=== PATIENT | female | born 1985 | race Caucasian/White ===

== ENCOUNTER 2019-04-26 15:43 | Inpatient (IN) | payer MEDICAID ==
[~2019-04-26] VITALS: Ht 175.3 cm; Wt 50.9 kg
[~2019-04-26 15:43] MED LIST: ALBU6.7H8 PO; CEFD300C37 PO; FAMO20TA7 PO; MAGN400T50 PO; METR500T PO; ONDA4TAB7 PO; SUCR1TAB PO
--- NOTE | 2019-04-26 16:16 | NUR ---
pt to ed c/o flu like sx/nausea/cough/weakness/body aches/fevers/chills x 1 month. intermittent. zpack from urgent care. cough medicine from . pt dry heaving. ST on monitor 100s. pt is being worked up for afib right now. hx bulimia 10 years ago. sts no appetite/not drinking much. vitals as charted. lung sounds coars bilat, clear w/ coughing. sts vomiting x1.5 days. no flu shot. call de leon in reach. awaiting md. as
[2019-04-26] MEDS ORDERED: ONDANSETRON 2MG/ML, 2ML IVPush ONE (16:30)
[2019-04-26] MEDS ORDERED: SODIUM CHLORIDE FLUSH 10ML SYR IVF ONE (16:30)
[2019-04-26] MEDS ORDERED: SODIUM CHLORIDE 0.9% 1,000ML IVBOLUS ONE ×2 (16:30→18:00)
[2019-04-26] MEDS ORDERED: ONDANSETRON 2MG/ML, 2ML ONE (16:35)
[2019-04-26 17:13] LABS: MEAN CORPUSCULAR HEMOGLOBIN 38.4 pg (27.0-34.8); MEAN CORPUSCULAR HGB CONC 32.9 g/dL (32.4-35.8); MEAN CORPUSCULAR VOLUME 116.9 fL (80-100); MEAN PLATELET VOLUME 7.6 fL (7.4-10.4); PLATELET COUNT 197 x10^3/uL (130-400); RED BLOOD COUNT 3.66 x10^6/uL (3.82-5.3); RED CELL DISTRIBUTION WIDTH 19.3 % (9.6-15.2)
[2019-04-26 17:19] LABS: HCG UR SG 1.024 (1.003-1.030); MICROSCOPIC AUTO
[2019-04-26 17:22] LABS: CULTURE INDICATED? NO
--- NOTE | 2019-04-26 17:22 | NUR ---
labs/iv/flu/meds. pt occasionally dry heaves then becomes tachy 120s. ST 100s. call de leon in reach. as
[2019-04-26 17:24] LABS: ALANINE AMINOTRANSFERASE 79 U/L (12-78); ALBUMIN 4.1 g/dL (3.4-5.0); ANION GAP 15 mmol/L (5-15); CALCIUM 8.9 mg/dL (8.5-10.1); CHLORIDE 105 mmol/L (98-107); CREATININE 0.69 mg/dL (0.55-1.02)
[2019-04-26 17:27] LABS: ALKALINE PHOSPHATASE 137 U/L (45-117); BILIRUBIN,TOTAL 1.2 mg/dL (0.2-1.0); TOTAL PROTEIN 7.3 g/dL (6.4-8.2)
[2019-04-26 17:42] LABS: RAPID INFLUENZA A Negative (Negative); RAPID INFLUENZA B Negative (Negative)
[2019-04-26 17:42] LABS: BASOPHILS # (AUTO) 0.02 x10^3/uL (0-0.1); BASOPHILS % (AUTO) 1 % (0-1); EOSINOPHILS # (AUTO) 0.02 x10^3/uL (0-0.4); EOSINOPHILS % (AUTO) 0 % (1-7); LYMPHOCYTES # (AUTO) 0.87 x10^3/uL (1-3.4); LYMPHOCYTES % (AUTO) 19 % (22-44); MD SCAN; MONOCYTES # (AUTO) 0.19 x10^3/uL (0.2-0.8); MONOCYTES % (AUTO) 4 % (2-9); NEUTROPHILS # (AUTO) 3.56 x10^3/uL (1.8-6.8); NEUTROPHILS % (AUTO) 76 % (42-75)
--- NOTE | 2019-04-26 17:52 | NUR ---
LACTIC 6.4. DISCUSSED W/ VAN BIBMERCEDES. 2ND LITER HUNG. PLAN FOR PROBABLY ADMIT/BLOOD CULT/EKG. NAD. NO FURTHER DRY HEAVING.
--- NOTE | 2019-04-26 18:56 | NUR ---
PT TO AND FROM US. RESULTS PENDING. VSS. PT REPORTS FEELING BETTER. BETTER COLOR NOTED.
[2019-04-26 18:58] LABS: AMPHETAMINE SCREEN, URINE Negative (Negative); BARBITURATE SCREEN, URINE Negative (Negative); BENZODIAZEPINE SCREEN, URINE Negative (Negative); CANNABINOID SCREEN, URINE Negative (Negative); COCAINE SCREEN, URINE Negative (Negative); METHADONE SCREEN, URINE Negative (Negative); OPIATE SCREEN, URINE Negative (Negative)
--- NOTE | 2019-04-26 19:10 | NUR ---
PT TO BE ADMITTED.
[2019-04-26] MEDS ORDERED: POLYETHYLENE GLYCOL 17 GM PACKET PO PRN (20:00)
[2019-04-26] MEDS ORDERED: PROMETHAZINE 25 MG/ML, 1ML IM PRN (20:00)
[2019-04-26] MEDS ORDERED: BISACODYL 10 MG SUPP PR PRN (20:00)
[2019-04-26] MEDS ORDERED: hydrALAzine 20 MG/ML, 1ML IVPush PRN (20:00)
[2019-04-26] MEDS ORDERED: OXYcodone IR 5MG TABLET PO PRN (20:00)
[2019-04-26] MEDS ORDERED: DOCUSATE 100 MG CAPSULE PO PRN (20:00)
[2019-04-26] MEDS ORDERED: ONDANSETRON ODT 4 MG PO PRN (20:00)
[2019-04-26 20:08] LABS: FREE T4 (FREE THYROXINE) 0.79 ng/dL (0.76-1.46)
[2019-04-26] MEDS: ONDANSETRON 2MG/ML, 2ML IVPush PRN (21:35)
[2019-04-26] MEDS: D5%-0.9% NACL 1,000 ML IV SCH (21:36)
[2019-04-26 21:43] VITALS: BP 111/74
[2019-04-26] MEDS ORDERED: FLU VACC QS2019-20 36MOS UP/PF 0.5 ML IM-VACC ONE (22:30)
[2019-04-26] MEDS ORDERED: ALBUTEROL SULFATE 2.5 MG/3 ML NPPB PRN (23:00)
[2019-04-26] MEDS: morphine SULFATE 10 MG/ML, 1ML IVPush PRN (23:43)
[2019-04-27 00:38] LABS: CLOSTRIDIUM DIFFICILE ANTIGEN POSITIVE; CLOSTRIDIUM DIFFICILE TOXIN NEGATIVE (Negative)
[2019-04-27 01:20] VITALS: BP 123/84
[2019-04-27] MEDS: morphine SULFATE 10 MG/ML, 1ML IVPush PRN (02:55)
[2019-04-27 05:13] LABS: MEAN CORPUSCULAR HEMOGLOBIN 38.9 pg (27.0-34.8); MEAN CORPUSCULAR HGB CONC 33.3 g/dL (32.4-35.8); MEAN CORPUSCULAR VOLUME 116.8 fL (80-100); MEAN PLATELET VOLUME 7.5 fL (7.4-10.4); PLATELET COUNT 151 x10^3/uL (130-400); RED BLOOD COUNT 2.72 x10^6/uL (3.82-5.3); RED CELL DISTRIBUTION WIDTH 18.7 % (9.6-15.2)
[2019-04-27 05:15] LABS: ANION GAP 5 mmol/L (5-15); CALCIUM 7.3 mg/dL (8.5-10.1); CHLORIDE 110 mmol/L (98-107)
[2019-04-27 05:19] LABS: ALANINE AMINOTRANSFERASE 53 U/L (12-78); ALKALINE PHOSPHATASE 91 U/L (45-117); BILIRUBIN,TOTAL 1.8 mg/dL (0.2-1.0); CHOLESTEROL, TOTAL 119 mg/dL (140-239); CREATININE 0.59 mg/dL (0.55-1.02); HDL CHOL % 50 % (28-40); HDL CHOLESTEROL (DIRECT) 60 mg/dL (40-60); LDL CHOLESTEROL,CALCULATED 37 mg/dL (54-169); LDL/HDL RATIO 0.6 (0.5-3.0); TOTAL PROTEIN 5.2 g/dL (6.4-8.2); TRIGLYCERIDES 109 mg/dL (50-200); VLDL CHOLESTEROL 22 mg/dL (0-25)
[2019-04-27] MEDS: D5%-0.9% NACL 1,000 ML IV SCH (05:34)
[2019-04-27 05:53] LABS: BASOPHILS # (AUTO) 0.02 x10^3/uL (0-0.1); BASOPHILS % (AUTO) 0 % (0-1); EOSINOPHILS # (AUTO) 0.08 x10^3/uL (0-0.4); EOSINOPHILS % (AUTO) 2 % (1-7); LYMPHOCYTES # (AUTO) 1.66 x10^3/uL (1-3.4); LYMPHOCYTES % (AUTO) 30 % (22-44); MD MORPH REVIEW ONLY; MONOCYTES % (AUTO) 5 % (2-9); NEUTROPHILS # (AUTO) 3.45 x10^3/uL (1.8-6.8); NEUTROPHILS % (AUTO) 63 % (42-75)
[2019-04-27 05:54] LABS: ANISOCYTOSIS 1+; STOMATOCYTES 1+
[2019-04-27 05:55] LABS: <PLATELET ESTIMATE> ADEQUATE; <PLT MORPHOLOGY> NORMAL PLT MORPH
[2019-04-27] MEDS ORDERED: BENZ-17 PO (06:45)
[2019-04-27 07:11] VITALS: BP 127/85
[2019-04-27] MEDS ORDERED: MAGNESIUM SULFATE 3 GM in SODIUM CHLORIDE 0.9% 100 ML IV ONE (07:30)
[2019-04-27] MEDS: ONDANSETRON 2MG/ML, 2ML IVPush PRN (08:51)
[2019-04-27 12:55] VITALS: BP 131/93
[2019-04-27 13:06] VITALS: BP 116/77
[2019-04-27] MEDS: LACTATED RINGERS 1,000 ML IV SCH (17:24)
[2019-04-27 19:04] VITALS: BP 123/85
[2019-04-27] MEDS ORDERED: OMNIPAQUE 350 MG/ML, 100ML BOTTLE ONE (19:07)
[2019-04-27] MEDS: VANCOMYCIN 50 MG/ML ORAL SUSP PO SCH (20:45)
[2019-04-28 01:00] VITALS: BP 121/87
[2019-04-28] MEDS: LACTATED RINGERS 1,000 ML IV SCH (03:21)
[2019-04-28] MEDS: VANCOMYCIN 50 MG/ML ORAL SUSP PO SCH ×3 (03:21→16:00)
[2019-04-28 05:44] LABS: INTERNATIONAL NORMALIZED RATIO 1.02 (0.93-1.1); PROTHROMBIN TIME 10.7 Seconds (9.6-11.5)
[2019-04-28 05:47] LABS: MEAN CORPUSCULAR HEMOGLOBIN 38.7 pg (27.0-34.8); MEAN CORPUSCULAR HGB CONC 33.4 g/dL (32.4-35.8); MEAN CORPUSCULAR VOLUME 115.8 fL (80-100); MEAN PLATELET VOLUME 7.9 fL (7.4-10.4); PLATELET COUNT 145 x10^3/uL (130-400); RED BLOOD COUNT 3.03 x10^6/uL (3.82-5.3); RED CELL DISTRIBUTION WIDTH 18.5 % (9.6-15.2)
[2019-04-28 05:48] LABS: ALBUMIN 3.2 g/dL (3.4-5.0); ANION GAP 7 mmol/L (5-15); CALCIUM 8.1 mg/dL (8.5-10.1); CHLORIDE 105 mmol/L (98-107)
[2019-04-28 06:07] LABS: BASOPHILS # (AUTO) 0.02 x10^3/uL (0-0.1); BASOPHILS % (AUTO) 1 % (0-1); EOSINOPHILS # (AUTO) 0.19 x10^3/uL (0-0.4); EOSINOPHILS % (AUTO) 5 % (1-7); LYMPHOCYTES # (AUTO) 1.25 x10^3/uL (1-3.4); LYMPHOCYTES % (AUTO) 30 % (22-44); MD SCAN; MONOCYTES # (AUTO) 0.21 x10^3/uL (0.2-0.8); MONOCYTES % (AUTO) 5 % (2-9); NEUTROPHILS # (AUTO) 2.55 x10^3/uL (1.8-6.8); NEUTROPHILS % (AUTO) 60 % (42-75)
[2019-04-28 06:16] LABS: ALANINE AMINOTRANSFERASE 43 U/L (12-78); ALKALINE PHOSPHATASE 101 U/L (45-117); BILIRUBIN,TOTAL 1.5 mg/dL (0.2-1.0); CREATININE 0.46 mg/dL (0.55-1.02); TOTAL PROTEIN 5.8 g/dL (6.4-8.2)
[2019-04-28] MEDS ORDERED: MAGNESIUM SULFATE PMX 2GM/50ML 50 ML IV ONE (07:30)
[2019-04-28] MEDS ORDERED: POTASSIUM PHOSPHATE 44 MEQ in SODIUM CHLORIDE 0.9% 500 ML IV ONE (07:30)
[2019-04-28 08:14] VITALS: BP 119/79
[2019-04-28 12:45] VITALS: BP 102/71
[2019-04-28] MEDS ORDERED: VANC1VIA3 PO (14:54)
[2019-04-28] MEDS ORDERED: POTASSIUM CHLORIDE 20 MEQ TAB.ER.PRT PO ONE (16:00)
[2019-04-28] MEDS ORDERED: NEUTRA PHOS K 250 MG TABLET PO ONE (16:00)
== END 2019-04-28 18:31 | disposition home or self-care (01) | DRG 372 ==
LOC: ED 17:09 → EDIP 19:04 → 3N 20:10
PROVIDERS: ADMIT Emergency Medicine; ATTEND Emergency Medicine
DX: A04.72 Enterocolitis due to Clostridium difficile, not specified as recurrent (principal); E87.2 Acidosis; D50.9 Iron deficiency anemia, unspecified; E83.42 Hypomagnesemia; E86.0 Dehydration; J45.909 Unspecified asthma, uncomplicated; Z88.8 Allergy status to other drugs, medicaments and biological substances; Z91.018 Allergy to other foods; K76.0 Fatty (change of) liver, not elsewhere classified; Z82.49 Family history of ischemic heart disease and other diseases of the circulatory system; Z83.3 Family history of diabetes mellitus; D53.9 Nutritional anemia, unspecified
CPT/HCPCS: 36415; 84145; 87400; 87806; J3370; J7042; 71045; 74177; 76700; 80053; 80061; 80307; 81001; 81025; 82607; 83036; 83605; 83690; 83735; 84100; 84439; 84443; 85025; 85610; 86704; 86705; 86706; 86708; 86709; 86803; 87040; 87081; 87324; 87340; 87493; 87880; 90686; 93005; G0378; J2405; J2550; J3475; Q9967; G0475; J2270; J7030; J7040; J7120

== ENCOUNTER 2019-05-04 14:37 | Emergency (ER) | payer MEDICAID ==
[~2019-05-04] VITALS: Ht 152.4 cm; Wt 45.9 kg
[~2019-05-04 14:37] MED LIST changes: +BENZ-17 PO; +VANC1VIA3 PO
--- NOTE | 2019-05-04 15:28 | NUR ---
ISO CART PLACED OUTSIDE OF ROOM. PT DRESSED IN GOWN, ATTACHED TO MONITORS. PT WAS DIAGNOSED WITH C-DIFF AND COLITIS RECENTLY. DUE TO INSURANCE AND SOURCE ISSUES, PT STARTED ORAL VANC THIS PAST Saturday05/02/2019. ABLE TO HOLD DOWN SMALL AMOUNTS OF WATER, BUT NOT MUCH ELSE. C/O N/V/D AND ABD PAIN. PROVIDED WITH WARM BLANKETS. DENIES ANY FURTHER NEEDS OR CONCERNS AT THIS TIME. CALL LIGHT IN REACH.
[2019-05-04] MEDS ORDERED: SODIUM CHLORIDE 0.9% 1,000ML IVBOLUS ONE (16:00)
[2019-05-04] MEDS ORDERED: ONDANSETRON 2MG/ML, 2ML IVPush ONE (16:00)
[2019-05-04] MEDS ORDERED: ONDANSETRON 2MG/ML, 2ML ONE (16:00)
[2019-05-04] MEDS ORDERED: SODIUM CHLORIDE FLUSH 10ML SYR IVF ONE (16:00)
[2019-05-04 16:18] LABS: ALANINE AMINOTRANSFERASE 57 U/L (12-78); ANION GAP 7 mmol/L (5-15); CALCIUM 9.4 mg/dL (8.5-10.1); CHLORIDE 104 mmol/L (98-107); CREATININE 0.59 mg/dL (0.55-1.02)
[2019-05-04 16:20] LABS: ALKALINE PHOSPHATASE 123 U/L (45-117); BILIRUBIN,TOTAL 2.4 mg/dL (0.2-1.0); TOTAL PROTEIN 7.2 g/dL (6.4-8.2)
--- NOTE | 2019-05-04 16:51 | NUR ---
TASK RN: PT PROVIDED UA. SENT TO LAB. NADN. BOWER. NO OTHER NEEDS REQUESTED AT THIS TIME. PT STATES "I HAVEN'T HAD DIARRHEA FOR ABOUT 3 HOURS. SINCE BEFORE I GOT HERE."
[2019-05-04 16:53] VITALS: BP 126/84
[2019-05-04 17:03] LABS: MICROSCOPIC AUTO
[2019-05-04 17:06] LABS: BASOPHILS # (AUTO) 0.02 x10^3/uL (0-0.1); BASOPHILS % (AUTO) 1 % (0-1); EOSINOPHILS # (AUTO) 0.07 x10^3/uL (0-0.4); EOSINOPHILS % (AUTO) 2 % (1-7); LYMPHOCYTES # (AUTO) 1.16 x10^3/uL (1-3.4); LYMPHOCYTES % (AUTO) 31 % (22-44); MD SCAN; MEAN CORPUSCULAR HGB CONC 32.4 g/dL (32.4-35.8); MEAN CORPUSCULAR VOLUME 117.5 fL (80-100); MEAN PLATELET VOLUME 8.4 fL (7.4-10.4); MONOCYTES # (AUTO) 0.34 x10^3/uL (0.2-0.8); MONOCYTES % (AUTO) 9 % (2-9); NEUTROPHILS # (AUTO) 2.21 x10^3/uL (1.8-6.8); NEUTROPHILS % (AUTO) 58 % (42-75); PLATELET COUNT 159 x10^3/uL (130-400); RED BLOOD COUNT 3.53 x10^6/uL (3.82-5.3); RED CELL DISTRIBUTION WIDTH 18.2 % (9.6-15.2)
--- NOTE | 2019-05-04 17:40 | NUR ---
PT UPDATED ON PLAN OF CARE. DENIES ANY CURRENT NEEDS OR CONCERNS. CALL LIGHT IN REACH.
[2019-06-10] MEDS ORDERED: VANC1VIA3 PO ×2 (13:57)
[2019-06-10] MEDS ORDERED: PANT40TA5 PO ×2 (13:57)
== END 2019-05-04 19:17 | disposition home or self-care (01) ==
LOC: ED 18:47
DX: R19.7 Diarrhea, unspecified (principal); J45.909 Unspecified asthma, uncomplicated
CPT/HCPCS: 36415; 80053; 81001; 85025; 87086; 96361; 96374; 99283; J2405; J7030

== ENCOUNTER 2019-05-08 15:22 | Emergency (ER) | payer MEDICAID ==
[~2019-05-08] VITALS: Ht 162.6 cm; Wt 46.5 kg
--- NOTE | 2019-05-08 17:14 | NUR ---
Pt to room from lobby.
[2019-05-08 19:23] LABS: ALANINE AMINOTRANSFERASE 47 U/L (12-78); ALBUMIN 4.1 g/dL (3.4-5.0); ANION GAP 9 mmol/L (5-15); CALCIUM 9.2 mg/dL (8.5-10.1); CHLORIDE 102 mmol/L (98-107); CREATININE 0.61 mg/dL (0.55-1.02)
[2019-05-08 19:27] LABS: MEAN CORPUSCULAR HGB CONC 32.8 g/dL (32.4-35.8); MEAN PLATELET VOLUME 7.7 fL (7.4-10.4); PLATELET COUNT 326 x10^3/uL (130-400); RED BLOOD COUNT 3.54 x10^6/uL (3.82-5.3)
[2019-05-08 19:28] LABS: ALKALINE PHOSPHATASE 117 U/L (45-117); BASOPHILS # (AUTO) 0.04 x10^3/uL (0-0.1); BASOPHILS % (AUTO) 1 % (0-1); EOSINOPHILS # (AUTO) 0.03 x10^3/uL (0-0.4); EOSINOPHILS % (AUTO) 0 % (1-7); LYMPHOCYTES # (AUTO) 1.71 x10^3/uL (1-3.4); LYMPHOCYTES % (AUTO) 24 % (22-44); MD MORPH REVIEW ONLY; MONOCYTES # (AUTO) 0.34 x10^3/uL (0.2-0.8); MONOCYTES % (AUTO) 5 % (2-9); NEUTROPHILS # (AUTO) 5.03 x10^3/uL (1.8-6.8); NEUTROPHILS % (AUTO) 70 % (42-75); TOTAL PROTEIN 7.2 g/dL (6.4-8.2)
[2019-05-08 19:29] LABS: <PLATELET ESTIMATE> ADEQUATE; <PLT MORPHOLOGY> NORMAL PLT MORPH; ANISOCYTOSIS 1+; POLYCHROMASIA 1+
[2019-05-08 19:30] LABS: MICROSCOPIC NOT IND
[2019-05-08 19:32] LABS: CULTURE INDICATED? NO
[2019-05-08] MEDS ORDERED: ONDANSETRON ODT 4 MG ONE (19:58)
[2019-05-08] MEDS ORDERED: ONDANSETRON ODT 4 MG PO ONE (20:00)
[2019-05-08 20:28] VITALS: BP 117/78
== END 2019-05-08 20:31 | disposition home or self-care (01) ==
LOC: ED 17:50
DX: R10.12 Left upper quadrant pain (principal); J45.909 Unspecified asthma, uncomplicated; R11.2 Nausea with vomiting, unspecified; R42 Dizziness and giddiness
CPT/HCPCS: 36415; 74021; 80053; 81003; 83690; 84703; 85025; 99284; Q0162

== ENCOUNTER 2019-05-16 12:04 | Emergency (ER) | payer MEDICAID ==
[~2019-05-16] VITALS: Ht 162.6 cm; Wt 44.7 kg
--- NOTE | 2019-05-16 12:55 | NUR ---
PT PRESENTING TO ER FOR LLQ PAIN WITH N/V/D. PT DX WITH CDIFF LAST MONTH, NO LONGER TAKING ABX BUT PAIN STILL PRESENT. DIARREAH X6 AFTER STOPPING ABX. PT PLACED IN ISO. CONNECTED TO MONITORING, VSS. FAMILY AT BEDSIDE. CALL LIGHT WITHIN REACH
[2019-05-16] MEDS ORDERED: MORPHINE SULFATE 4 MG/ML, 1ML ONE (13:29)
[2019-05-16] MEDS ORDERED: ONDANSETRON 2MG/ML, 2ML ONE (13:29)
[2019-05-16 13:30] LABS: MICROSCOPIC INDICATED
[2019-05-16] MEDS ORDERED: ONDANSETRON 2MG/ML, 2ML IVPush ONE (13:30)
[2019-05-16] MEDS ORDERED: MORPHINE SULFATE 4 MG/ML, 1ML IVPush PRN (13:30)
[2019-05-16] MEDS ORDERED: SODIUM CHLORIDE FLUSH 10ML SYR IVF ONE (13:30)
[2019-05-16 13:31] LABS: CULTURE INDICATED? YES
[2019-05-16 13:33] LABS: MEAN CORPUSCULAR HEMOGLOBIN 37.2 pg (27.0-34.8); MEAN CORPUSCULAR HGB CONC 32.6 g/dL (32.4-35.8); MEAN CORPUSCULAR VOLUME 114.1 fL (80-100); MEAN PLATELET VOLUME 7.4 fL (7.4-10.4); PLATELET COUNT 198 x10^3/uL (130-400); RED BLOOD COUNT 3.91 x10^6/uL (3.82-5.3); RED CELL DISTRIBUTION WIDTH 17.3 % (9.6-15.2)
--- NOTE | 2019-05-16 13:34 | NUR ---
PT MEDICATED FOR PAIN PER MAR. LABS COLLECTED. UA COLLECTED AND SENT. CALL LIGHT WITHIN REACH. FAMILY AT BEDSIDE. AWAITING RESULTS AT THIS TIME
[2019-05-16 13:46] LABS: ALBUMIN 4.1 g/dL (3.4-5.0); ANION GAP 12 mmol/L (5-15); CALCIUM 9.2 mg/dL (8.5-10.1); CHLORIDE 101 mmol/L (98-107)
[2019-05-16 13:49] LABS: ALANINE AMINOTRANSFERASE 52 U/L (12-78); ALKALINE PHOSPHATASE 128 U/L (45-117); BILIRUBIN,TOTAL 2.5 mg/dL (0.2-1.0); CREATININE 0.57 mg/dL (0.55-1.02)
[2019-05-16 13:50] LABS: TOTAL PROTEIN 7.4 g/dL (6.4-8.2)
[2019-05-16 13:59] LABS: BASOPHILS # (AUTO) 0.05 x10^3/uL (0-0.1); BASOPHILS % (AUTO) 1 % (0-1); EOSINOPHILS # (AUTO) 0.19 x10^3/uL (0-0.4); EOSINOPHILS % (AUTO) 4 % (1-7); LYMPHOCYTES # (AUTO) 1.55 x10^3/uL (1-3.4); LYMPHOCYTES % (AUTO) 34 % (22-44); MD MORPH REVIEW ONLY; MONOCYTES % (AUTO) 9 % (2-9); NEUTROPHILS # (AUTO) 2.42 x10^3/uL (1.8-6.8); NEUTROPHILS % (AUTO) 53 % (42-75)
[2019-05-16 14:00] LABS: ANISOCYTOSIS 1+
[2019-05-16 14:01] LABS: <PLATELET ESTIMATE> ADEQUATE; <PLT MORPHOLOGY> NORMAL PLT MORPH
--- NOTE | 2019-05-16 14:25 | NUR ---
ALL RESULTS BACK AT THIS TIME, CHART UP FOR RECHECK
--- NOTE | 2019-05-16 15:06 | NUR ---
GI PAGED @[phone]. CALL RETURNED @ [phone]
--- NOTE | 2019-05-16 15:17 | NUR ---
MD TO BEDSIDE FOR RECEHCK.
[2019-05-16 16:06] VITALS: BP 117/70
== END 2019-05-16 16:08 | disposition home or self-care (01) ==
LOC: ED 12:55
DX: A04.72 Enterocolitis due to Clostridium difficile, not specified as recurrent (principal); R10.12 Left upper quadrant pain
CPT/HCPCS: 36415; 80053; 81001; 83690; 84703; 85025; 87086; 96374; 96375; 99283; J2270; J2405; 87147

== ENCOUNTER → 2019-05-25 | Outpatient (CLI) | payer MEDICAID | END | disposition home or self-care (01) | LOC: CFH 15:54 | PROVIDERS: ATTEND Internal Medicine Cardiovascular Disease | DX: R00.2 Palpitations (principal); J45.909 Unspecified asthma, uncomplicated | CPT/HCPCS: 93306 ==

== ENCOUNTER 2019-05-31 18:00 | Emergency (ER) | payer MEDICAID ==
[~2019-05-31] VITALS: Ht 162.6 cm; Wt 47.9 kg
--- NOTE | 2019-05-31 18:34 | NUR ---
THIS IS A 33 YO F W/ C/O BRIGHT RED BLOOD IN STOOL LAST NIGHT AND TODAY. REPORTS DIARRHEA SINCE THE BEGINING OF APRIL. DX WITH CDIFF AND HAS BEEN ON VANCOMYCIN X2 WEEKS. PT REPORTS LAST YEAR SHE WAS DX W/ COLITIS AND WENT SEPTIC. PT REPORTS LEFT UPPR QUADRANT. PT TACHYCARDIC. ALL OTHER VS WDL. PT RESTING ON GURNEY W/ CALL LIGHT IN REACH. AWAITING ED PROVIDER NERY.
--- NOTE | 2019-05-31 19:07 | NUR ---
LAB IN ROOM.
--- NOTE | 2019-05-31 19:13 | NUR ---
PT AMBULATED TO THE COMMODE W/ A STEADY GAIT.
[2019-05-31 19:18] LABS: MEAN CORPUSCULAR HEMOGLOBIN 37.1 pg (27.0-34.8); MEAN CORPUSCULAR HGB CONC 32.8 g/dL (32.4-35.8); MEAN CORPUSCULAR VOLUME 113.2 fL (80-100); MEAN PLATELET VOLUME 7.3 fL (7.4-10.4); PLATELET COUNT 276 x10^3/uL (130-400); RED BLOOD COUNT 3.61 x10^6/uL (3.82-5.3); RED CELL DISTRIBUTION WIDTH 16.2 % (9.6-15.2)
[2019-05-31 19:21] LABS: BASOPHILS # (AUTO) 0.02 x10^3/uL (0-0.1); BASOPHILS % (AUTO) 0 % (0-1); EOSINOPHILS # (AUTO) 0.11 x10^3/uL (0-0.4); EOSINOPHILS % (AUTO) 3 % (1-7); LYMPHOCYTES # (AUTO) 1.35 x10^3/uL (1-3.4); LYMPHOCYTES % (AUTO) 31 % (22-44); MD MORPH REVIEW ONLY; MONOCYTES # (AUTO) 0.39 x10^3/uL (0.2-0.8); MONOCYTES % (AUTO) 9 % (2-9); NEUTROPHILS # (AUTO) 2.43 x10^3/uL (1.8-6.8); NEUTROPHILS % (AUTO) 57 % (42-75)
[2019-05-31 19:23] LABS: INTERNATIONAL NORMALIZED RATIO 1.01 (0.93-1.1); PROTHROMBIN TIME 10.7 Seconds (9.6-11.5)
--- NOTE | 2019-05-31 19:24 | NUR ---
PT UNABLE TO PROVIDE STOOL SAMPLE.
[2019-05-31 19:25] LABS: ALANINE AMINOTRANSFERASE 50 U/L (12-78); ALBUMIN 3.4 g/dL (3.4-5.0); ANION GAP 6 mmol/L (5-15); CALCIUM 8.4 mg/dL (8.5-10.1); CHLORIDE 108 mmol/L (98-107)
[2019-05-31 19:30] LABS: ALKALINE PHOSPHATASE 106 U/L (45-117); BILIRUBIN,TOTAL 0.3 mg/dL (0.2-1.0); TOTAL PROTEIN 6.6 g/dL (6.4-8.2)
[2019-05-31 19:39] LABS: ANISOCYTOSIS 1+
[2019-05-31 19:40] LABS: <PLATELET ESTIMATE> ADEQUATE; <PLT MORPHOLOGY> NORMAL PLT MORPH
--- NOTE | 2019-05-31 20:01 | NUR ---
PT AMBULATED TO THE COMMODE W/ A STEADY GAIT.
--- NOTE | 2019-05-31 20:04 | NUR ---
PT UNABLE TO PROVIDE STOOL SAMPLE.
--- NOTE | 2019-05-31 20:32 | NUR ---
IV PLACED FOR CT. PT REQUESTING PAIN MEDICATION AT THIS TIME, UPDATED. CT CONTACTED THAT PT REDY FOR TESTING.
[2019-05-31] MEDS ORDERED: ONDANSETRON 2MG/ML, 2ML ONE (20:33)
[2019-05-31] MEDS ORDERED: MORPHINE SULFATE 4 MG/ML, 1ML ONE (20:33)
--- NOTE | 2019-05-31 20:37 | NUR ---
PT MEDICATED FOR PAIN PER JUN. TAKEN TO CT
[2019-05-31 20:51] VITALS: BP 124/91
[2019-05-31] MEDS ORDERED: MORPHINE SULFATE 4 MG/ML, 1ML IVPush PRN (21:00)
[2019-05-31] MEDS ORDERED: ONDANSETRON 2MG/ML, 2ML IVPush ONE (21:00)
--- NOTE | 2019-05-31 21:17 | NUR ---
IN ROOM FOR RECTAL EXAM.
[2019-05-31] MEDS ORDERED: OMNIPAQUE 350 MG/ML, 100ML BOTTLE ONE (21:37)
== END 2019-05-31 22:03 | disposition home or self-care (01) ==
LOC: ED 18:37
DX: K62.5 Hemorrhage of anus and rectum (principal); R10.12 Left upper quadrant pain
CPT/HCPCS: 36415; 74177; 80053; 83690; 84703; 85025; 85610; 86850; 86900; 96374; 96375; 99284; J2270; J2405; Q9967

== ENCOUNTER 2019-06-07 13:03 | Inpatient (IN) | payer MEDICAID ==
[~2019-06-07] VITALS: Ht 162.6 cm; Wt 45.0 kg
--- NOTE | 2019-06-07 13:28 | NUR ---
PT AMBULATORY WITH STEADY GAIT TO ROOM FROM TRIAGE. CHANGING INTO GOWN NOW.
--- NOTE | 2019-06-07 13:34 | NUR ---
PT HERE FOR N/V/D AND ABDOMINAL PAIN. WAS DX WITH CDILALA IN APRIL OF THIS YEAR. PT RECEIVED GI COCKTAIL AT ON SATURDAY. SAW GI MD ON SATURDAY AND HAS COLONOSCOPY SCHEDULED 1.5 MONTHS OUT. CAME FROM TODAY FOR WORSE ABDOMINAL PAIN. RESTING ON GURNEY. CONNECTED TO MONITOR. VSS. HILLIARD. BUGGYMAN STUDENT AT BEDSIDE.
[2019-06-07] MEDS ORDERED: ONDANSETRON 2MG/ML, 2ML ONE (13:51)
[2019-06-07] MEDS ORDERED: MORPHINE SULFATE 4 MG/ML, 1ML ONE (13:51)
[2019-06-07] MEDS ORDERED: MORPHINE SULFATE 4 MG/ML, 1ML IVPush PRN (14:00)
[2019-06-07] MEDS ORDERED: ONDANSETRON 2MG/ML, 2ML IVPush ONE (14:00)
[2019-06-07] MEDS ORDERED: SODIUM CHLORIDE 0.9% 1,000ML IVBOLUS ONE (14:00)
[2019-06-07] MEDS ORDERED: MAGNESIUM SULFATE 1 GM, THIAMINE 100 MG, FOLIC ACID 1 MG, MVI ADULT 10 ML in SODIUM CHL... IV ONE (14:00)
[2019-06-07] MEDS ORDERED: SODIUM CHLORIDE FLUSH 10ML SYR IVF ONE (14:00)
--- NOTE | 2019-06-07 14:23 | NUR ---
PIV STARTED. PT MEDICATED PER EMAR. BLOOD DRAWN. PT RESTING ON GURNEY. NADN. VSS.
[2019-06-07 14:30] LABS: MEAN CORPUSCULAR VOLUME 112.1 fL (80-100); MEAN PLATELET VOLUME 6.9 fL (7.4-10.4); PLATELET COUNT 257 x10^3/uL (130-400); RED CELL DISTRIBUTION WIDTH 15.9 % (9.6-15.2)
--- NOTE | 2019-06-07 14:31 | NUR ---
dr mcghee spoke with dr flores
[2019-06-07 14:40] LABS: ALANINE AMINOTRANSFERASE 37 U/L (12-78); ALBUMIN 3.5 g/dL (3.4-5.0); ANION GAP 8 mmol/L (5-15); CALCIUM 8.5 mg/dL (8.5-10.1); CHLORIDE 108 mmol/L (98-107); CREATININE 0.68 mg/dL (0.55-1.02)
[2019-06-07 14:45] LABS: ALKALINE PHOSPHATASE 119 U/L (45-117); BILIRUBIN,TOTAL 0.5 mg/dL (0.2-1.0); TOTAL PROTEIN 6.7 g/dL (6.4-8.2)
[2019-06-07 14:46] LABS: BASOPHILS # (AUTO) 0.03 x10^3/uL (0-0.1); BASOPHILS % (AUTO) 1 % (0-1); EOSINOPHILS # (AUTO) 0.08 x10^3/uL (0-0.4); EOSINOPHILS % (AUTO) 2 % (1-7); LYMPHOCYTES # (AUTO) 2.29 x10^3/uL (1-3.4); LYMPHOCYTES % (AUTO) 53 % (22-44); MD MORPH REVIEW ONLY; MONOCYTES % (AUTO) 7 % (2-9); NEUTROPHILS # (AUTO) 1.61 x10^3/uL (1.8-6.8); NEUTROPHILS % (AUTO) 37 % (42-75)
[2019-06-07 14:47] LABS: <PLATELET ESTIMATE> ADEQUATE; <PLT MORPHOLOGY> NORMAL PLT MORPH; ANISOCYTOSIS 1+
--- NOTE | 2019-06-07 15:26 | NUR ---
PT MEDICATED PER EMAR. ABLE TO AMBULATE WITH STEADY GAIT TO BATHROOM AND BACK TO [place]. PROVIDED URINE SAMPLE. RESTING ON GURNEY. NADN. VSS. SOILA MURPHY AT BEDSIDE ASSESSING PT NOW.
[2019-06-07 15:56] LABS: FREE T4 (FREE THYROXINE) 1.04 ng/dL (0.76-1.46)
[2019-06-07 15:59] LABS: AMPHETAMINE SCREEN, URINE Negative (Negative); BARBITURATE SCREEN, URINE Negative (Negative); BENZODIAZEPINE SCREEN, URINE Negative (Negative); COCAINE SCREEN, URINE Negative (Negative)
[2019-06-07 16:00] LABS: CANNABINOID SCREEN, URINE Negative (Negative); METHADONE SCREEN, URINE Negative (Negative); OPIATE SCREEN, URINE Positive (Negative)
[2019-06-07] MEDS ORDERED: PROMETHAZINE 25 MG/ML, 1ML IM PRN (16:30)
[2019-06-07] MEDS ORDERED: SODIUM CHLORIDE 0.9% 1,000 ML IV SCH (16:30)
[2019-06-07] MEDS ORDERED: LABETALOL 5MG/ML, 20ML IVPush PRN (16:30)
[2019-06-07] MEDS ORDERED: ACETAMINOPHEN 325 MG TABLET PO PRN (16:30)
--- NOTE | 2019-06-07 16:30 | NUR ---
PT RESTING ON GURNEY. HILLIARD. CONNECTED TO MONITOR.
--- NOTE | 2019-06-07 16:46 | NUR ---
REPORT GIVEN TO NUPUR BENTLEY.
[2019-06-07 17:22] VITALS: BP 122/78
[2019-06-07] MEDS: morphine SULFATE 10 MG/ML, 1ML IVPush PRN ×3 (17:56→23:14)
[2019-06-07] MEDS: MOVIPREP POWDER 1 PREP KIT PO SCH ×2 (20:04→23:14)
[2019-06-07 20:18] VITALS: BP 111/76
[2019-06-07 22:38] LABS: CLOSTRIDIUM DIFFICILE ANTIGEN POSITIVE; CLOSTRIDIUM DIFFICILE TOXIN NEGATIVE (Negative)
[2019-06-07] MEDS: SODIUM CHLORIDE 0.9% 1,000 ML IV SCH (23:14)
[2019-06-07] MEDS: ONDANSETRON 2MG/ML, 2ML IVPush PRN (23:14)
[2019-06-08] MEDS: SODIUM CHLORIDE 0.9% 1,000 ML IV SCH ×2 (02:40→16:46)
[2019-06-08 02:49] VITALS: BP 120/81
[2019-06-08] MEDS ORDERED: MORPHINE SULFATE 4 MG/ML, 1ML ONE ×2 (03:11→06:20)
[2019-06-08] MEDS: morphine SULFATE 10 MG/ML, 1ML IVPush PRN ×2 (03:16→06:28)
[2019-06-08 05:18] LABS: ALBUMIN 2.9 g/dL (3.4-5.0); ANION GAP 7 mmol/L (5-15); CALCIUM 6.9 mg/dL (8.5-10.1); CHLORIDE 109 mmol/L (98-107)
[2019-06-08 05:31] LABS: MEAN CORPUSCULAR HEMOGLOBIN 36.7 pg (27.0-34.8); MEAN CORPUSCULAR HGB CONC 32.7 g/dL (32.4-35.8); MEAN CORPUSCULAR VOLUME 112.3 fL (80-100); MEAN PLATELET VOLUME 7.3 fL (7.4-10.4); PLATELET COUNT 195 x10^3/uL (130-400); RED BLOOD COUNT 3.25 x10^6/uL (3.82-5.3); RED CELL DISTRIBUTION WIDTH 15.9 % (9.6-15.2)
[2019-06-08 05:32] LABS: ALANINE AMINOTRANSFERASE 32 U/L (12-78); ALKALINE PHOSPHATASE 98 U/L (45-117); BILIRUBIN,TOTAL 1.2 mg/dL (0.2-1.0); CREATININE 0.53 mg/dL (0.55-1.02); TOTAL PROTEIN 5.5 g/dL (6.4-8.2)
[2019-06-08 06:06] LABS: BASOPHILS # (AUTO) 0.03 x10^3/uL (0-0.1); BASOPHILS % (AUTO) 1 % (0-1); EOSINOPHILS # (AUTO) 0.07 x10^3/uL (0-0.4); EOSINOPHILS % (AUTO) 1 % (1-7); LYMPHOCYTES # (AUTO) 2.55 x10^3/uL (1-3.4); LYMPHOCYTES % (AUTO) 45 % (22-44); MD SCAN; MONOCYTES # (AUTO) 0.24 x10^3/uL (0.2-0.8); MONOCYTES % (AUTO) 4 % (2-9); NEUTROPHILS # (AUTO) 2.73 x10^3/uL (1.8-6.8); NEUTROPHILS % (AUTO) 49 % (42-75)
[2019-06-08] MEDS: ONDANSETRON 2MG/ML, 2ML IVPush PRN (06:28)
[2019-06-08] MEDS ORDERED: MAGNESIUM SULFATE PMX 2GM/50ML 50 ML IV ONE (07:30)
[2019-06-08] MEDS ORDERED: POTASSIUM CHLORIDE 40 MEQ in SODIUM CHLORIDE 0.9% 500 ML IV ONE (07:30)
[2019-06-08 07:49] VITALS: BP 124/83
[2019-06-08] MEDS ORDERED: FENTANYL PF 100 MCG/2ML IV PRN (09:30)
[2019-06-08] MEDS ORDERED: MIDAZOLAM 1 MG/ML, 2ML IV PRN (09:30)
[2019-06-08] MEDS ORDERED: ACETAMINOPHEN 325 MG TABLET PO PRN (09:30)
[2019-06-08] MEDS ORDERED: ONDANSETRON 2MG/ML, 2ML IV PRN (09:30)
[2019-06-08] MEDS ORDERED: PROPOFOL 10 MG/ML, 20ML ONE ×2 (09:35)
[2019-06-08] MEDS: VANCOMYCIN 50 MG/ML ORAL SUSP PO SCH ×3 (11:08→23:12)
[2019-06-08] MEDS: PANTOPROZOLE 40MG TABLET PO SCH ×2 (11:08→16:44)
[2019-06-08] MEDS: CALCIUM CARBONATE 500 MG TABLET PO SCH ×2 (11:09→20:59)
[2019-06-08 12:55] VITALS: BP 133/80
[2019-06-08 14:27] LABS: CRYPTOSPORIDIUM ANTIGEN Negative (Negative)
[2019-06-08] MEDS ORDERED: ALBUTEROL SULFATE 2.5 MG/3 ML NPPB PRN (14:30)
[2019-06-08] MEDS: MOVIPREP POWDER 1 PREP KIT PO SCH (18:49)
[2019-06-08 20:15] VITALS: BP 133/93
[2019-06-08] MEDS: HYDROcodone/APAP 5/325 TABLET PO PRN (21:08)
[2019-06-09] MEDS: SODIUM CHLORIDE 0.9% 1,000 ML IV SCH ×2 (01:15→17:13)
[2019-06-09 01:16] VITALS: BP 122/72
[2019-06-09] MEDS: HYDROcodone/APAP 5/325 TABLET PO PRN ×6 (01:16→21:22)
[2019-06-09] MEDS: VANCOMYCIN 50 MG/ML ORAL SUSP PO SCH ×4 (05:13→23:12)
[2019-06-09 05:29] LABS: ALANINE AMINOTRANSFERASE 26 U/L (12-78); ALBUMIN 2.8 g/dL (3.4-5.0); ANION GAP 4 mmol/L (5-15); CALCIUM 7.9 mg/dL (8.5-10.1); CHLORIDE 109 mmol/L (98-107); MEAN CORPUSCULAR HEMOGLOBIN 36.9 pg (27.0-34.8); MEAN CORPUSCULAR VOLUME 111.9 fL (80-100); MEAN PLATELET VOLUME 8.1 fL (7.4-10.4); PLATELET COUNT 164 x10^3/uL (130-400); RED CELL DISTRIBUTION WIDTH 15.7 % (9.6-15.2)
[2019-06-09 05:32] LABS: ALKALINE PHOSPHATASE 99 U/L (45-117); BILIRUBIN,TOTAL 1.4 mg/dL (0.2-1.0); CREATININE 0.49 mg/dL (0.55-1.02); TOTAL PROTEIN 5.4 g/dL (6.4-8.2)
[2019-06-09 05:59] LABS: BASOPHILS # (AUTO) 0.02 x10^3/uL (0-0.1); BASOPHILS % (AUTO) 0 % (0-1); EOSINOPHILS % (AUTO) 1 % (1-7); LYMPHOCYTES # (AUTO) 1.71 x10^3/uL (1-3.4); LYMPHOCYTES % (AUTO) 23 % (22-44); MD SCAN; MONOCYTES # (AUTO) 0.33 x10^3/uL (0.2-0.8); MONOCYTES % (AUTO) 4 % (2-9); NEUTROPHILS % (AUTO) 72 % (42-75)
[2019-06-09 07:25] VITALS: BP 107/71
[2019-06-09] MEDS: PANTOPROZOLE 40MG TABLET PO SCH ×2 (09:08→17:09)
[2019-06-09] MEDS: CALCIUM CARBONATE 500 MG TABLET PO SCH ×2 (09:08→21:22)
[2019-06-09 12:52] VITALS: BP 113/79
[2019-06-09] MEDS: ONDANSETRON 2MG/ML, 2ML IVPush PRN (13:17)
[2019-06-09] MEDS: MOVIPREP POWDER 1 PREP KIT PO SCH (18:12)
[2019-06-09 20:00] VITALS: BP 121/80
[2019-06-09] MEDS ORDERED: MORPHINE SULFATE 4 MG/ML, 1ML ONE (23:09)
[2019-06-09] MEDS: morphine SULFATE 10 MG/ML, 1ML IVPush PRN (23:12)
[2019-06-10] MEDS: HYDROcodone/APAP 5/325 TABLET PO PRN ×2 (01:27→05:31)
[2019-06-10] MEDS: SODIUM CHLORIDE 0.9% 1,000 ML IV SCH ×2 (01:27→12:05)
[2019-06-10 01:49] VITALS: BP 132/91
[2019-06-10] MEDS: VANCOMYCIN 50 MG/ML ORAL SUSP PO SCH ×3 (05:30→17:25)
[2019-06-10 07:04] VITALS: BP 114/78
[2019-06-10] MEDS: ONDANSETRON 2MG/ML, 2ML IVPush PRN (07:41)
[2019-06-10] MEDS: CALCIUM CARBONATE 500 MG TABLET PO SCH (09:30)
[2019-06-10] MEDS: PANTOPROZOLE 40MG TABLET PO SCH ×2 (09:30→17:25)
[2019-06-10 13:31] VITALS: BP 120/84
[2019-06-10] MEDS ORDERED: PANT40TA5 PO (13:57)
[2019-06-10] MEDS ORDERED: VANC1VIA3 PO (13:57)
== END 2019-06-10 17:46 | disposition home or self-care (01) | DRG 373 ==
LOC: ED 13:26 → EDIP 15:21 → 4NE 17:00
PROVIDERS: ADMIT Internal Medicine; ATTEND Internal Medicine
PROC: 0DB58ZX Excision of Esophagus, Via Natural or Artificial Opening Endoscopic, Diagnostic (ICD-10-PCS; 2019-06-08)
PROC: 0DB48ZX Excision of Esophagogastric Junction, Via Natural or Artificial Opening Endoscopic, Diagnostic (ICD-10-PCS; 2019-06-08)
PROC: 0DBB8ZX Excision of Ileum, Via Natural or Artificial Opening Endoscopic, Diagnostic (ICD-10-PCS; 2019-06-08)
PROC: 0DBE8ZX Excision of Large Intestine, Via Natural or Artificial Opening Endoscopic, Diagnostic (ICD-10-PCS; 2019-06-08)
PROC: 0DB98ZX Excision of Duodenum, Via Natural or Artificial Opening Endoscopic, Diagnostic (ICD-10-PCS; principal; 2019-06-08 09:00)
PROC: 0DB68ZX Excision of Stomach, Via Natural or Artificial Opening Endoscopic, Diagnostic (ICD-10-PCS; 2019-06-08 09:00)
DX: A04.72 Enterocolitis due to Clostridium difficile, not specified as recurrent (principal); J45.909 Unspecified asthma, uncomplicated; E86.0 Dehydration; R13.14 Dysphagia, pharyngoesophageal phase; K76.0 Fatty (change of) liver, not elsewhere classified; K20.9 Esophagitis, unspecified; K29.00 Acute gastritis without bleeding; E87.6 Hypokalemia; E83.42 Hypomagnesemia; Z86.19 Personal history of other infectious and parasitic diseases; Z88.0 Allergy status to penicillin; Z88.1 Allergy status to other antibiotic agents
CPT/HCPCS: 36415; 74018; 87046; 87427; 89055; 99285; J3370; 80053; 80307; 82607; 83690; 83735; 84439; 84443; 84703; 85025; 87324; 87328; 87329; 87493; 88305; G0378; J2405; J2704; J3411; J3475; J3480; J2270; J7030; J7040

== ENCOUNTER 2019-06-15 14:46 | Emergency (ER) | payer MEDICAID ==
[~2019-06-15] VITALS: Ht 162.6 cm; Wt 46.0 kg
[~2019-06-15 14:46] MED LIST changes: +PANT40TA5 PO
[2019-06-15 15:31] VITALS: BP 111/77
--- NOTE | 2019-06-15 15:37 | NUR ---
THIS RN PRESENT DURING ECG.
[2019-06-15 16:12] LABS: ALANINE AMINOTRANSFERASE 61 U/L (12-78); ALBUMIN 4.2 g/dL (3.4-5.0); ANION GAP 10 mmol/L (5-15); CALCIUM 8.9 mg/dL (8.5-10.1); CHLORIDE 108 mmol/L (98-107)
[2019-06-15 16:16] LABS: ALKALINE PHOSPHATASE 148 U/L (45-117); BILIRUBIN,TOTAL 0.4 mg/dL (0.2-1.0); TOTAL PROTEIN 7.7 g/dL (6.4-8.2); TROPONIN I < 0.015 ng/mL (0.000-0.045)
[2019-06-15 16:28] LABS: MEAN CORPUSCULAR HEMOGLOBIN 37.6 pg (27.0-34.8); MEAN CORPUSCULAR VOLUME 110.6 fL (80-100); MEAN PLATELET VOLUME 7.2 fL (7.4-10.4); PLATELET COUNT 299 x10^3/uL (130-400); RED BLOOD COUNT 4.19 x10^6/uL (3.82-5.3); RED CELL DISTRIBUTION WIDTH 15.7 % (9.6-15.2)
--- NOTE | 2019-06-15 17:28 | NUR ---
SPIRITUAL CARE COORDINATOR: PT AMBULATORY TO ROOM FROM LOBBY
[2019-06-15 17:52] LABS: BASOPHILS # (AUTO) 0.03 x10^3/uL (0-0.1); BASOPHILS % (AUTO) 1 % (0-1); EOSINOPHILS # (AUTO) 0.05 x10^3/uL (0-0.4); EOSINOPHILS % (AUTO) 1 % (1-7); LYMPHOCYTES # (AUTO) 2.83 x10^3/uL (1-3.4); LYMPHOCYTES % (AUTO) 44 % (22-44); MD MORPH REVIEW ONLY; MONOCYTES # (AUTO) 0.32 x10^3/uL (0.2-0.8); MONOCYTES % (AUTO) 5 % (2-9); NEUTROPHILS # (AUTO) 3.19 x10^3/uL (1.8-6.8); NEUTROPHILS % (AUTO) 50 % (42-75)
[2019-06-15 17:53] LABS: <PLATELET ESTIMATE> ADEQUATE; <PLT MORPHOLOGY> NORMAL PLT MORPH
--- NOTE | 2019-06-15 18:02 | NUR ---
PT UPRIGHT ON GURNEY AWAKE & CALM, TEXTING ON PHONE, RESPONDS APPROP TO STAFF, NAD AT REST, NO NEEDS AT THSI TIME, VISITOR AT BS, CALL LIGHT WITHIN REACH.
--- NOTE | 2019-06-15 18:53 | NUR ---
nurse discharge: Patient/Caregiver given discharge instructions and they have confirmed that they understand the instructions. Patient ambulatory with steady gait.
== END 2019-06-15 18:55 | disposition home or self-care (01) ==
LOC: ED 18:30
DX: S00.83XA Contusion of other part of head, initial encounter (principal); S00.01XA Abrasion of scalp, initial encounter; L24.89 Irritant contact dermatitis due to other agents; J45.909 Unspecified asthma, uncomplicated; W18.30XA Fall on same level, unspecified, initial encounter; Y93.89 Activity, other specified; Y92.009 Unspecified place in unspecified non-institutional (private) residence as the place of occurrence of the external cause; Y99.8 Other external cause status
CPT/HCPCS: 36415; 70450; 71045; 80053; 83690; 84484; 85025; 93005; 99285

== ENCOUNTER 2019-06-20 13:46 | Inpatient (IN) | payer MEDICAID ==
[~2019-06-20] VITALS: Ht 162.6 cm; Wt 49.1 kg
[2019-06-20] MEDS ORDERED: PROCHLORPERAZINE 5 MG/ML, 2ML IVPush ONE (14:30)
[2019-06-20] MEDS ORDERED: SODIUM CHLORIDE 0.9% 1,000ML IVBOLUS ONE (14:30)
--- NOTE | 2019-06-20 14:30 | NUR ---
PT TO ROOM 36 PER PEDIS WITH BOYFRIEND. PT HAS HAD ABDOMINAL PAIN, N/V/D FOR A FEW MONTHS, AND NOW IS DEVELOPING A RASH FROM THE VANCOMYCIN. PT CALLED GI DOCTOR WHO TOLD HER THAT SHE DID NOT HAVE C-DIFF AND TO STOP THE VANCO. PT HERE DUE TO CONSTANT VOMITING. PT IS A/O X4. PT HAS SMALL AMOUNT CLEAR VOMIT. ASSESSMENT PERFORMED. IN TO ASSESS PATENT, POC DISCUSSED.
[2019-06-20 15:01] LABS: ALANINE AMINOTRANSFERASE 48 U/L (12-78); ALBUMIN 4.6 g/dL (3.4-5.0); ANION GAP 14 mmol/L (5-15); CALCIUM 9.3 mg/dL (8.5-10.1); CHLORIDE 103 mmol/L (98-107); CREATININE 0.73 mg/dL (0.55-1.02)
[2019-06-20 15:08] LABS: BASOPHILS # (AUTO) 0.03 x10^3/uL (0-0.1); BASOPHILS % (AUTO) 0 % (0-1); EOSINOPHILS # (AUTO) 0.04 x10^3/uL (0-0.4); EOSINOPHILS % (AUTO) 1 % (1-7); LYMPHOCYTES # (AUTO) 1.55 x10^3/uL (1-3.4); LYMPHOCYTES % (AUTO) 20 % (22-44); MD SCAN; MEAN CORPUSCULAR HEMOGLOBIN 35.9 pg (27.0-34.8); MEAN CORPUSCULAR HGB CONC 33.1 g/dL (32.4-35.8); MEAN CORPUSCULAR VOLUME 108.6 fL (80-100); MEAN PLATELET VOLUME 7.7 fL (7.4-10.4); MONOCYTES # (AUTO) 0.17 x10^3/uL (0.2-0.8); MONOCYTES % (AUTO) 2 % (2-9); NEUTROPHILS # (AUTO) 5.94 x10^3/uL (1.8-6.8); NEUTROPHILS % (AUTO) 77 % (42-75); PLATELET COUNT 262 x10^3/uL (130-400); RED CELL DISTRIBUTION WIDTH 15.6 % (9.6-15.2)
[2019-06-20] MEDS ORDERED: PROCHLORPERAZINE 5 MG/ML, 2ML ONE (15:12)
[2019-06-20 15:22] LABS: ALKALINE PHOSPHATASE 150 U/L (45-117); BILIRUBIN,TOTAL 1.5 mg/dL (0.2-1.0); TOTAL PROTEIN 7.7 g/dL (6.4-8.2)
--- NOTE | 2019-06-20 15:30 | NUR ---
PT RESTING, TESTING COMPLETED. IV ATTEMPTED WITHOUT SUCCESS. TECH IN TO START IV AND SO IV BOLUS CAN BE GIVEN.
--- NOTE | 2019-06-20 16:30 | NUR ---
PT CONTINUES TO HAVE NAUSEA. PT UP TO BR ATTEMPTING TO COLLECT STOOL FOR C-DIFF TESTING.
--- NOTE | 2019-06-20 17:55 | NUR ---
STOOL SAMPLE OBTAINED AND SENT FOR TESTING. PT REMAINS STABLE BOYFRIEND AT BEDSIDE.
--- NOTE | 2019-06-20 18:30 | NUR ---
ADMITTING DOCTOR IN TO ASSESS PATIENT. PT STABLE.
[2019-06-20 18:45] LABS: HCT (SEDRATE) 44.5 % (34.6-47.8)
--- NOTE | 2019-06-20 19:30 | NUR ---
PT UP TO BR
--- NOTE | 2019-06-20 20:01 | NUR ---
REPORT TO FLOOR RN. PT PREPARED FOR TRANSFER. BOYFRIEND REMAINS AT BEDSIDE.
[2019-06-20] MEDS: FIDAXOMICIN 200 MG TABLET PO SCH (22:18)
[2019-06-20] MEDS: ONDANSETRON 2MG/ML, 2ML IVPush PRN (22:20)
[2019-06-20] MEDS: SODIUM CHLORIDE 0.9% 1,000 ML IV SCH (22:26)
[2019-06-20] MEDS: ENOXAPARIN 40 MG/0.4 ML SQ SCH (22:26)
[2019-06-21 00:07] VITALS: BP 107/69
[2019-06-21] MEDS: ONDANSETRON 2MG/ML, 2ML IVPush PRN (05:16)
[2019-06-21] MEDS: SODIUM CHLORIDE 0.9% 1,000 ML IV SCH ×3 (05:16→18:23)
[2019-06-21 05:54] LABS: BASOPHILS # (AUTO) 0.02 x10^3/uL (0-0.1); BASOPHILS % (AUTO) 0 % (0-1); EOSINOPHILS # (AUTO) 0.12 x10^3/uL (0-0.4); EOSINOPHILS % (AUTO) 2 % (1-7); LYMPHOCYTES # (AUTO) 1.93 x10^3/uL (1-3.4); LYMPHOCYTES % (AUTO) 26 % (22-44); MD NO; MEAN CORPUSCULAR HEMOGLOBIN 36.3 pg (27.0-34.8); MEAN CORPUSCULAR HGB CONC 33.5 g/dL (32.4-35.8); MEAN CORPUSCULAR VOLUME 108.5 fL (80-100); MEAN PLATELET VOLUME 7.6 fL (7.4-10.4); MONOCYTES # (AUTO) 0.31 x10^3/uL (0.2-0.8); MONOCYTES % (AUTO) 4 % (2-9); NEUTROPHILS # (AUTO) 4.95 x10^3/uL (1.8-6.8); NEUTROPHILS % (AUTO) 67 % (42-75); PLATELET COUNT 193 x10^3/uL (130-400); RED BLOOD COUNT 3.09 x10^6/uL (3.82-5.3); RED CELL DISTRIBUTION WIDTH 15.5 % (9.6-15.2)
[2019-06-21 06:00] LABS: ANION GAP 13 mmol/L (5-15); CALCIUM 7.8 mg/dL (8.5-10.1); CHLORIDE 103 mmol/L (98-107); CREATININE 0.54 mg/dL (0.55-1.02)
[2019-06-21 09:12] VITALS: BP 112/67
[2019-06-21] MEDS: FIDAXOMICIN 200 MG TABLET PO SCH ×2 (09:38→19:51)
[2019-06-21] MEDS: PANTOPRAZOLE 40 MG IV IVPush SCH (09:39)
[2019-06-21 11:02] LABS: CLOSTRIDIUM DIFFICILE ANTIGEN NEGATIVE; CLOSTRIDIUM DIFFICILE TOXIN NEGATIVE (Negative)
[2019-06-21] MEDS: LACTOBACILLUS CHEW TABLET PO SCH ×3 (13:31→19:51)
[2019-06-21 14:06] VITALS: BP 110/70
[2019-06-21 20:13] VITALS: BP 117/79
[2019-06-21] MEDS: ENOXAPARIN 40 MG/0.4 ML SQ SCH (22:17)
[2019-06-22] MEDS: SODIUM CHLORIDE 0.9% 1,000 ML IV SCH ×2 (01:06→08:03)
[2019-06-22 01:32] VITALS: BP 118/81
[2019-06-22 05:32] LABS: CHLORIDE 109 mmol/L (98-107)
[2019-06-22 05:35] LABS: MEAN CORPUSCULAR HEMOGLOBIN 36.3 pg (27.0-34.8); MEAN CORPUSCULAR HGB CONC 33.4 g/dL (32.4-35.8); MEAN CORPUSCULAR VOLUME 108.6 fL (80-100); MEAN PLATELET VOLUME 7.9 fL (7.4-10.4); PLATELET COUNT 156 x10^3/uL (130-400); RED BLOOD COUNT 2.85 x10^6/uL (3.82-5.3); RED CELL DISTRIBUTION WIDTH 15.5 % (9.6-15.2)
[2019-06-22 05:39] LABS: ALANINE AMINOTRANSFERASE 25 U/L (12-78); ALKALINE PHOSPHATASE 90 U/L (45-117); BILIRUBIN,TOTAL 1.1 mg/dL (0.2-1.0); CALCIUM 7.5 mg/dL (8.5-10.1); TOTAL PROTEIN 5.2 g/dL (6.4-8.2); TRIGLYCERIDES 62 mg/dL (50-200)
[2019-06-22 05:40] LABS: ANION GAP 6 mmol/L (5-15)
[2019-06-22 06:08] LABS: BASOPHILS # (AUTO) 0.02 x10^3/uL (0-0.1); BASOPHILS % (AUTO) 0 % (0-1); EOSINOPHILS # (AUTO) 0.16 x10^3/uL (0-0.4); EOSINOPHILS % (AUTO) 3 % (1-7); LYMPHOCYTES # (AUTO) 1.95 x10^3/uL (1-3.4); LYMPHOCYTES % (AUTO) 35 % (22-44); MD SCAN; MONOCYTES % (AUTO) 4 % (2-9); NEUTROPHILS # (AUTO) 3.23 x10^3/uL (1.8-6.8); NEUTROPHILS % (AUTO) 58 % (42-75)
[2019-06-22 06:44] VITALS: BP 109/75
[2019-06-22] MEDS: PANTOPRAZOLE 40 MG IV IVPush SCH (08:03)
[2019-06-22] MEDS: LACTOBACILLUS CHEW TABLET PO SCH ×3 (08:04→19:58)
[2019-06-22] MEDS: FIDAXOMICIN 200 MG TABLET PO SCH ×2 (08:04→19:58)
[2019-06-22 13:27] VITALS: BP 120/81
[2019-06-22 20:44] VITALS: BP 120/79
[2019-06-22] MEDS: ENOXAPARIN 40 MG/0.4 ML SQ SCH (22:30)
[2019-06-23 01:50] VITALS: BP 119/80
[2019-06-23 05:13] LABS: BASOPHILS # (AUTO) 0.02 x10^3/uL (0-0.1); BASOPHILS % (AUTO) 0 % (0-1); EOSINOPHILS # (AUTO) 0.27 x10^3/uL (0-0.4); EOSINOPHILS % (AUTO) 5 % (1-7); LYMPHOCYTES # (AUTO) 1.92 x10^3/uL (1-3.4); LYMPHOCYTES % (AUTO) 32 % (22-44); MD NO; MEAN CORPUSCULAR HGB CONC 33.3 g/dL (32.4-35.8); MEAN PLATELET VOLUME 8.2 fL (7.4-10.4); MONOCYTES # (AUTO) 0.23 x10^3/uL (0.2-0.8); MONOCYTES % (AUTO) 4 % (2-9); NEUTROPHILS # (AUTO) 3.47 x10^3/uL (1.8-6.8); NEUTROPHILS % (AUTO) 59 % (42-75); PLATELET COUNT 158 x10^3/uL (130-400); RED BLOOD COUNT 3.16 x10^6/uL (3.82-5.3); RED CELL DISTRIBUTION WIDTH 15.1 % (9.6-15.2)
[2019-06-23 05:26] LABS: CHLORIDE 106 mmol/L (98-107)
[2019-06-23 05:34] LABS: ALANINE AMINOTRANSFERASE 27 U/L (12-78); ALBUMIN 3.2 g/dL (3.4-5.0); ALKALINE PHOSPHATASE 96 U/L (45-117); ANION GAP 8 mmol/L (5-15); BILIRUBIN,TOTAL 0.7 mg/dL (0.2-1.0); CREATININE 0.48 mg/dL (0.55-1.02)
[2019-06-23] MEDS: FIDAXOMICIN 200 MG TABLET PO SCH (09:03)
[2019-06-23] MEDS: PANTOPRAZOLE 40 MG IV IVPush SCH (09:03)
[2019-06-23] MEDS: LACTOBACILLUS CHEW TABLET PO SCH (09:04)
[2019-06-23 09:07] VITALS: BP 109/69
[2019-06-23] MEDS ORDERED: PANT40TA5 PO (12:12)
[2019-06-23] MEDS ORDERED: ACID1TAB7 PO (12:12)
[2019-06-23] MEDS ORDERED: SUCR1TAB33 PO (12:12)
[2019-06-23] MEDS ORDERED: FIDA200T PO (12:12)
[2019-06-23 13:05] VITALS: BP 115/77
== END 2019-06-23 15:19 | disposition home or self-care (01) | DRG 440 ==
LOC: ED 15:05 → EDIP 18:07 → 3N 21:33 → DCLOUNGE 06-23 15:08
PROVIDERS: ADMIT Internal Medicine Infectious Disease; ATTEND Family Medicine
DX: K85.90 Acute pancreatitis without necrosis or infection, unspecified (principal); K76.0 Fatty (change of) liver, not elsewhere classified; K20.9 Esophagitis, unspecified; J45.909 Unspecified asthma, uncomplicated; R13.10 Dysphagia, unspecified; Z86.19 Personal history of other infectious and parasitic diseases; Z88.8 Allergy status to other drugs, medicaments and biological substances; Z91.018 Allergy to other foods; K29.70 Gastritis, unspecified, without bleeding; E86.0 Dehydration; D64.9 Anemia, unspecified; K31.9 Disease of stomach and duodenum, unspecified
CPT/HCPCS: 36415; 74018; 76700; 80048; 80053; 82390; 82728; 83516; 83540; 83550; 83690; 84478; 84703; 85025; 85651; 86038; 86140; 87324; 96361; 96374; G0378; J2405; C9113; J0780; J7030

== ENCOUNTER 2019-09-24 12:21 | Emergency (ER) | payer MEDICAID ==
[~2019-09-24] VITALS: Ht 162.6 cm; Wt 43.7 kg
[~2019-09-24 12:21] MED LIST changes: +ACID1TAB7 PO; +FIDA200T PO; +SUCR1TAB33 PO
--- NOTE | 2019-09-24 12:42 | NUR ---
FIRST CONTACT WITH PT. PT C/O N/V/STERNAL PAIN STARTING 3 DAYS AGO, PMD REFERRED HERE FOR EVAL PANCREATITIS. HX COLITIS AND PANCREATITIS. PT DENIES ANY OTEHR SX. PT'S AOX4. RESPS EVEN AND UNLABORED. BP/SPO2 MONITORS IN PLACE. CALL LIGHT WITHIN REACH.
[2019-09-24] MEDS ORDERED: FAMOTIDINE 20 MG/2 ML IV ONE (13:00)
[2019-09-24] MEDS ORDERED: MAALOX/HYOSCYAMINE/LIDOCAINE 45 ML BTL PO ONE (13:00)
[2019-09-24] MEDS ORDERED: ONDANSETRON 2MG/ML, 2ML IVPush ONE (13:00)
[2019-09-24] MEDS ORDERED: SODIUM CHLORIDE FLUSH 10ML SYR IVF ONE (13:00)
[2019-09-24] MEDS ORDERED: MAALOX/HYOSCYAMINE/LIDOCAINE 45 ML BTL ONE (13:02)
[2019-09-24] MEDS ORDERED: FAMOTIDINE 20 MG/2 ML ONE (13:02)
[2019-09-24] MEDS ORDERED: ONDANSETRON 2MG/ML, 2ML ONE (13:02)
--- NOTE | 2019-09-24 13:20 | NUR ---
pt amb to br and back to room with steady gait. pt provided small amout of urine sample. this rn walked to lab for ua.
--- NOTE | 2019-09-24 13:28 | NUR ---
pt medicated per emar. pt tolerated well.
[2019-09-24 13:34] LABS: BASOPHILS # (AUTO) 0.02 x10^3/uL (0-0.1); BASOPHILS % (AUTO) 0 % (0-1); EOSINOPHILS # (AUTO) 0.02 x10^3/uL (0-0.4); EOSINOPHILS % (AUTO) 0 % (1-7); LYMPHOCYTES # (AUTO) 1.31 x10^3/uL (1-3.4); LYMPHOCYTES % (AUTO) 18 % (22-44); MD NO; MEAN CORPUSCULAR HEMOGLOBIN 35.3 pg (27.0-34.8); MEAN CORPUSCULAR VOLUME 106.7 fL (80-100); MEAN PLATELET VOLUME 7.6 fL (7.4-10.4); MONOCYTES # (AUTO) 0.32 x10^3/uL (0.2-0.8); MONOCYTES % (AUTO) 4 % (2-9); NEUTROPHILS # (AUTO) 5.73 x10^3/uL (1.8-6.8); NEUTROPHILS % (AUTO) 77 % (42-75); PLATELET COUNT 190 x10^3/uL (130-400); RED CELL DISTRIBUTION WIDTH 17.5 % (9.6-15.2)
[2019-09-24 13:35] LABS: MICROSCOPIC AUTO
[2019-09-24 13:44] LABS: ALANINE AMINOTRANSFERASE 31 U/L (12-78); ALBUMIN 4.5 g/dL (3.4-5.0); ANION GAP 19 mmol/L (5-15); CALCIUM 9.5 mg/dL (8.5-10.1); CHLORIDE 97 mmol/L (98-107)
[2019-09-24 13:50] LABS: ALKALINE PHOSPHATASE 122 U/L (45-117); BILIRUBIN,TOTAL 1.7 mg/dL (0.2-1.0); CREATININE 0.71 mg/dL (0.55-1.02); TOTAL PROTEIN 8.1 g/dL (6.4-8.2); TROPONIN I < 0.015 ng/mL (0.000-0.045)
[2019-09-24] MEDS ORDERED: PANTOPRAZOLE 40 MG IV ONE (14:22)
[2019-09-24] MEDS ORDERED: SODIUM CHLORIDE 0.9% 1,000ML IVBOLUS ONE (14:30)
--- NOTE | 2019-09-24 14:32 | NUR ---
pt medicated per emar. pt tolerated well. ns infusing at this time. pt's aox4. resps even and unlabored.
--- NOTE | 2019-09-24 15:13 | NUR ---
PT TO CT AT THIS TIME.
[2019-09-24] MEDS ORDERED: OMNIPAQUE 350 MG/ML, 75ML BOTTLE ONE (15:35)
[2019-09-24 15:37] VITALS: BP 111/75
--- NOTE | 2019-09-24 15:37 | NUR ---
PT BACK TO ROOM FROM CT AT THIS TIME. PT'S AOX4. RESPS EVEN AND UNLABORED.
--- NOTE | 2019-09-24 16:23 | NUR ---
Patient given discharge instructions and they have confirmed that they understand the instructions. Patient ambulatory with steady gait.
[2019-09-25] MEDS ORDERED: PANTOPRAZOLE 40 MG IV IVPush SCH (09:00)
== END 2019-09-24 16:24 | disposition home or self-care (01) ==
LOC: ED 13:05
DX: K29.00 Acute gastritis without bleeding (principal); N30.00 Acute cystitis without hematuria; R10.12 Left upper quadrant pain; R10.13 Epigastric pain; R11.2 Nausea with vomiting, unspecified; R05 Cough; K21.9 Gastro-esophageal reflux disease without esophagitis; R00.0 Tachycardia, unspecified
CPT/HCPCS: 36415; 71275; 76700; 80053; 81001; 83690; 84484; 84703; 85025; 85379; 87086; 93005; 96361; 96374; 96375; 99285; C9113; J2405; J3490; J7030; Q9967

== ENCOUNTER 2019-10-31 11:19 | Inpatient (IN) | payer BC, MEDICAID ==
[~2019-10-31] VITALS: Ht 162.6 cm; Wt 45.4 kg
[2019-10-31] MEDS ORDERED: SODIUM CHLORIDE FLUSH 10ML SYR IVF ONE (12:30)
[2019-10-31 12:53] LABS: MEAN CORPUSCULAR HEMOGLOBIN 36.6 pg (27.0-34.8); MEAN CORPUSCULAR HGB CONC 32.5 g/dL (32.4-35.8); MEAN CORPUSCULAR VOLUME 112.6 fL (80-100); MEAN PLATELET VOLUME 8.6 fL (7.4-10.4); PLATELET COUNT 210 x10^3/uL (130-400); RED CELL DISTRIBUTION WIDTH 18.8 % (9.6-15.2)
[2019-10-31 13:03] LABS: ALANINE AMINOTRANSFERASE 190 U/L (12-78); ALBUMIN 4.4 g/dL (3.4-5.0); ANION GAP 12 mmol/L (5-15); CALCIUM 9.7 mg/dL (8.5-10.1); CHLORIDE 96 mmol/L (98-107); CREATININE 0.68 mg/dL (0.55-1.02)
[2019-10-31 13:06] LABS: ALKALINE PHOSPHATASE 193 U/L (45-117); BILIRUBIN,TOTAL 2.8 mg/dL (0.2-1.0); TOTAL PROTEIN 7.5 g/dL (6.4-8.2)
--- NOTE | 2019-10-31 13:07 | NUR ---
EMERGENCY DEPARTMENT AIDE: PT AMBULATORY WITH STEADY GAIT TO ROOM AT THIS TIME. NADN. PT GIVEN GOWN AND ASKED TO CHANGE.
[2019-10-31 13:23] LABS: BASOPHILS # (AUTO) 0.02 x10^3/uL (0-0.1); BASOPHILS % (AUTO) 0 % (0-1); EOSINOPHILS # (AUTO) 0.01 x10^3/uL (0-0.4); EOSINOPHILS % (AUTO) 0 % (1-7); LYMPHOCYTES % (AUTO) 16 % (22-44); MD SCAN; MONOCYTES # (AUTO) 0.31 x10^3/uL (0.2-0.8); MONOCYTES % (AUTO) 5 % (2-9); NEUTROPHILS # (AUTO) 4.92 x10^3/uL (1.8-6.8); NEUTROPHILS % (AUTO) 79 % (42-75)
[2019-10-31] MEDS ORDERED: MAGNESIUM SULFATE 4 GM, THIAMINE 100 MG, FOLIC ACID 1 MG, MVI ADULT 10 ML in SODIUM CHL... IV ONE (13:30)
[2019-10-31] MEDS ORDERED: NS + 40MEQ KCL 1,000 ML IV SCH (13:30)
[2019-10-31] MEDS ORDERED: MORPHINE SULFATE 4 MG/ML, 1ML IVPush ONE (14:00)
[2019-10-31] MEDS ORDERED: ONDANSETRON 2MG/ML, 2ML IVPush ONE (14:00)
[2019-10-31] MEDS ORDERED: NS + 40MEQ KCL 1,000 ML IV ONE (14:06)
[2019-10-31] MEDS ORDERED: MORPHINE SULFATE 4 MG/ML, 1ML ONE (14:06)
[2019-10-31] MEDS ORDERED: ONDANSETRON 2MG/ML, 2ML ONE (14:06)
--- NOTE | 2019-10-31 15:41 | NUR ---
REPORT TO WEI ESPITIA
[2019-10-31 16:29] VITALS: BP 118/79
[2019-10-31] MEDS ORDERED: POTASSIUM CHLORIDE 40 MEQ in SODIUM CHLORIDE 0.9% 500 ML IV ONE ×2 (17:00→17:30)
[2019-10-31] MEDS ORDERED: SODIUM CHLORIDE 0.9% 1,000 ML IV SCH (17:00)
[2019-10-31] MEDS ORDERED: POTASSIUM PHOSPHATE 22 MEQ in SODIUM CHLORIDE 0.9% 500 ML IV ONE ×2 (17:00→22:30)
[2019-10-31] MEDS ORDERED: hydrALAzine 20 MG/ML, 1ML IVPush PRN (17:00)
[2019-10-31] MEDS ORDERED: LABETALOL 5MG/ML, 20ML IVPush PRN (17:00)
[2019-10-31] MEDS: HEPARIN 5,000 UNITS/ML, 1ML SQ SCH (17:48)
[2019-10-31] MEDS: GUAIFENESIN 200 MG TABLET PO SCH ×2 (17:48→20:27)
[2019-10-31] MEDS: POTASSIUM CHLORIDE 20 MEQ TAB.ER.PRT PO SCH (17:48)
[2019-10-31] MEDS ORDERED: LORazepam 2 MG/ML, 1ML IVPush PRN (18:00)
[2019-10-31 19:28] LABS: TROPONIN I < 0.015 ng/mL (0.000-0.045)
[2019-10-31 19:41] LABS: INTERNATIONAL NORMALIZED RATIO 1.11 (0.93-1.1); PROTHROMBIN TIME 11.8 Seconds (9.6-11.5)
[2019-10-31 20:11] VITALS: BP 114/76
[2019-10-31] MEDS: morphine SULFATE 10 MG/ML, 1ML IVPush PRN (20:27)
[2019-10-31 21:38] LABS: ANION GAP 10 mmol/L (5-15); CALCIUM 7.8 mg/dL (8.5-10.1); CHLORIDE 96 mmol/L (98-107); CREATININE 0.66 mg/dL (0.55-1.02)
[2019-10-31 21:41] LABS: TROPONIN I < 0.015 ng/mL (0.000-0.045)
[2019-10-31 23:34] LABS: HCG UR SG 1.032 (1.003-1.030)
[2019-11-01 00:13] VITALS: BP 114/80
[2019-11-01] MEDS: HEPARIN 5,000 UNITS/ML, 1ML SQ SCH ×3 (01:38→17:50)
[2019-11-01 05:27] LABS: MEAN CORPUSCULAR HEMOGLOBIN 36.9 pg (27.0-34.8); MEAN CORPUSCULAR HGB CONC 32.4 g/dL (32.4-35.8); MEAN CORPUSCULAR VOLUME 113.8 fL (80-100); MEAN PLATELET VOLUME 8.8 fL (7.4-10.4); PLATELET COUNT 154 x10^3/uL (130-400); RED BLOOD COUNT 3.16 x10^6/uL (3.82-5.3)
[2019-11-01 05:32] LABS: CHLORIDE 104 mmol/L (98-107)
[2019-11-01 05:45] LABS: ALANINE AMINOTRANSFERASE 126 U/L (12-78); ALKALINE PHOSPHATASE 140 U/L (45-117); ANION GAP 8 mmol/L (5-15); CALCIUM 7.4 mg/dL (8.5-10.1); CREATININE 0.43 mg/dL (0.55-1.02); TOTAL PROTEIN 5.6 g/dL (6.4-8.2); TROPONIN I < 0.015 ng/mL (0.000-0.045)
[2019-11-01 06:00] LABS: BASOPHILS # (AUTO) 0.03 x10^3/uL (0-0.1); BASOPHILS % (AUTO) 1 % (0-1); EOSINOPHILS # (AUTO) 0.09 x10^3/uL (0-0.4); EOSINOPHILS % (AUTO) 2 % (1-7); LYMPHOCYTES # (AUTO) 2.97 x10^3/uL (1-3.4); LYMPHOCYTES % (AUTO) 51 % (22-44); MD SCAN; MONOCYTES # (AUTO) 0.38 x10^3/uL (0.2-0.8); MONOCYTES % (AUTO) 7 % (2-9); NEUTROPHILS # (AUTO) 2.32 x10^3/uL (1.8-6.8); NEUTROPHILS % (AUTO) 40 % (42-75)
[2019-11-01] MEDS: morphine SULFATE 10 MG/ML, 1ML IVPush PRN ×3 (06:07→21:09)
[2019-11-01] MEDS: GUAIFENESIN 200 MG TABLET PO SCH ×4 (06:07→21:08)
[2019-11-01 08:50] VITALS: BP 110/78
[2019-11-01] MEDS: SODIUM CHLORIDE 0.9% 1,000 ML IV SCH ×2 (08:51→17:51)
[2019-11-01] MEDS: POTASSIUM CHLORIDE 20 MEQ TAB.ER.PRT PO SCH ×2 (08:52→17:50)
[2019-11-01] MEDS ORDERED: PANTOPRAZOLE 40 MG IV IVPush SCH (09:00)
[2019-11-01] MEDS: ALBUTEROL HFA 90 MCG/SPRAY INH SCH (11:48)
[2019-11-01] MEDS ORDERED: ONDANSETRON 2MG/ML, 2ML IVPush PRN (13:00)
[2019-11-01] MEDS ORDERED: ALUMINUM/MAG/SIMETHICONE 30 ML UDC PO SCH (13:00)
[2019-11-01 14:50] VITALS: BP 101/72
[2019-11-01] MEDS: ALUMINUM/MAG/SIMETHICONE 30 ML UDC PO SCH ×2 (17:50→21:08)
[2019-11-01 20:06] VITALS: BP 120/86
[2019-11-02] MEDS: SODIUM CHLORIDE 0.9% 1,000 ML IV SCH ×2 (01:01→08:08)
[2019-11-02 01:02] VITALS: BP 110/74
[2019-11-02] MEDS: HEPARIN 5,000 UNITS/ML, 1ML SQ SCH ×3 (01:02→17:00)
[2019-11-02] MEDS ORDERED: PANTOPRAZOLE 40MG TABLET PO SCH (06:00)
[2019-11-02] MEDS: GUAIFENESIN 200 MG TABLET PO SCH ×3 (06:15→16:00)
[2019-11-02 06:17] VITALS: BP 118/80
[2019-11-02] MEDS: POTASSIUM CHLORIDE 20 MEQ TAB.ER.PRT PO SCH ×2 (08:07→17:00)
[2019-11-02] MEDS: morphine SULFATE 10 MG/ML, 1ML IVPush PRN (08:07)
[2019-11-02] MEDS: ALBUTEROL HFA 90 MCG/SPRAY INH SCH (08:08)
[2019-11-02] MEDS: ALUMINUM/MAG/SIMETHICONE 30 ML UDC PO SCH (08:08)
[2019-11-02 12:29] VITALS: BP 107/72
[2019-11-02] MEDS ORDERED: ONDA4TAB13 SL (14:29)
[2019-11-02] MEDS ORDERED: PANT40TA5 PO (14:29)
[2019-11-03 15:19] LABS: ANA SCREEN NEGATIVE (Negative)
== END 2019-11-02 17:21 | disposition home or self-care (01) | DRG 641 ==
LOC: ED 13:12 → EDIP 15:05 → 4WST 16:10 → 4NW 18:43
PROVIDERS: ADMIT Internal Medicine; ATTEND Hospitalist
DX: E87.6 Hypokalemia (principal); J45.901 Unspecified asthma with (acute) exacerbation; R07.89 Other chest pain; E83.42 Hypomagnesemia; E83.39 Other disorders of phosphorus metabolism; R94.31 Abnormal electrocardiogram [ECG] [EKG]; R74.0 Nonspecific elevation of levels of transaminase and lactic acid dehydrogenase [LDH]; R94.111 Abnormal electroretinogram [ERG]; K21.0 Gastro-esophageal reflux disease with esophagitis; E86.0 Dehydration; R94.5 Abnormal results of liver function studies; Z03.818 Encounter for observation for suspected exposure to other biological agents ruled out; Z88.0 Allergy status to penicillin
CPT/HCPCS: 36415; 71045; 76700; 80048; 80053; 80307; 81025; 83690; 83735; 84100; 84484; 85025; 85610; 86038; 86704; 86706; 86708; 86803; 87340; 87635; 93005; G0378; J1644; J2405; J3411; J3475; J3480; C9113; J2270; J7030; J7040